=== PATIENT | male | born 1985 | race American Indian/Alaskan Native ===

== ENCOUNTER 2019-01-24 06:38 | Emergency (ER) | payer BC ==
[2019-01-24 07:37] LABS: Basophils # (Auto) 0.1 K/mm3 (0.0-0.1); Basophils % (Auto) 1.3 % (0.0-1.8); Eosinophils # (Auto) 0.2 K/mm3 (0.0-0.4); Eosinophils % (Auto) 3.1 % (0.0-4.3); Hematocrit 45.9 % (35.5-45.6); Hemoglobin 15.1 gm/dl (11.8-15.2); Lymphocytes # (Auto) 1.5 K/mm3 (1.2-5.4); Mean Corpuscular HGB Conc 33 % (32-34); Mean Corpuscular Volume 87 fl (84-94); Monocytes # (Auto) 0.7 K/mm3 (0.0-0.8); Monocytes % (Auto) 11.2 % (0.0-7.3); Platelet Count 337 K/mm3 (140-440); Red Blood Count 5.26 M/mm3 (3.65-5.03); Red Cell Distribution Width 14.7 % (13.2-15.2)
[2019-01-24 07:55] LABS: Alanine Aminotransferase 28 units/L (7-56); Albumin 4.9 g/dL (3.9-5); BUN/Creatinine Ratio 12; Blood Urea Nitrogen 12 mg/dL (9-20); Hemolysis Index 12
[2019-01-24] MEDS ORDERED: FAMOTIDINE 20 MG TAB PO ONE (10:38)
[2019-01-24] MEDS ORDERED: ACETAMINOPHEN 500 MG TAB PO ONE (10:38)
--- NOTE | 2019-01-24 10:39 | Emergency Department Report ---
ED General Adult HPI - General Chief complaint: GI Bleed Stated complaint: ABD PAIN, BLOOD IN STOOL Time Seen by Provider: 01/24/19 09:45 Source: patient, RN notes reviewed Mode of arrival: Ambulatory Limitations: No Limitations - History of Present Illness Initial comments: This is a pleasant 33-year-old gentleman. This patient is not known to this pr emanuel previously. His primary care doctor is Dr.: Rojas Past medical history includes appendectomy, hypertension The patient presents to the ER with a complaint of a few days intermittent abdominal cramping, 3 loose bowel movements in the past 24 hours, brown, dark, and question red. He also has a history of hemorrhoids. He also describes urinary pressure. He has no headache, neck pain, chest pain. He states he is having abdominal cramping at the moment. He denies dysuria and testicular pain. Symptoms intermittent, do not radiate anywhere, and do not have exacerbating or relieving factors, as far as he is aware. He is concerned that he may be having some blood in his bowel movements. -: Gradual, days(s) Location: abdomen Radiation: other Quality: other Consistency: other Improves with: other Worsens with: other - Related Data Allergies Allergy/AdvReac Type Severity Reaction Status Date / Time No Known Allergies Allergy Unverified 01/24/19 07:08 ED Review of Systems ROS: Stated complaint: ABD PAIN, BLOOD IN STOOL Other details as noted in HPI Constitutional: denies: fever Eyes: denies: eye discharge ENT: denies: congestion Respiratory: denies: wheezing Cardiovascular: denies: syncope Gastrointestinal: diarrhea. denies: vomiting, hematemesis Genitourinary: denies: dysuria, testicular pain Musculoskeletal: denies: myalgia Skin: denies: lesions Neurological: denies: weakness Hematological/Lymphatic: denies: easy bleeding ED Past Medical Hx - Past Medical History Previous Medical History?: Yes Hx Hypertension: Yes - Surgical History Past Surgical History?: No - Social History Smoking Status: Current Every Day Smoker Substance Use Type: None ED Physical Exam - General Limitations: No Limitations General appearance: alert, in no apparent distress - Head Head exam: Present: atraumatic, normocephalic - Eye Eye exam: Present: normal appearance, EOMI. Absent: nystagmus - ENT ENT exam: Present: normal exam, normal orophraynx, mucous membranes moist, normal external ear exam - Neck Neck exam: Present: normal inspection, full ROM. Absent: tenderness, meningismus - Respiratory Respiratory exam: Present: normal lung sounds bilaterally. Absent: respiratory distress - Cardiovascular Cardiovascular Exam: Present: regular rate, normal rhythm, normal heart sounds. Absent: bradycardia, tachycardia, irregular rhythm, systolic murmur, diastolic murmur, rubs, gallop - GI/Abdominal GI/Abdominal exam: Present: soft, normal bowel sounds. Absent: distended, tenderness, guarding, rebound, rigid, pulsatile mass - Rectal Rectal exam: Present: normal inspection, normal rectal tone, heme (+) stool, other (Brown stool, guaiac positive. Chaperoned by nurse Yesenia Sherwood). Absent: black stool, bloody stool, fecal impaction, hemorrhoids, mass, normal prostate, prostate tenderness, prostate enlargement - Extremities Exam Extremities exam: Present: normal inspection, full ROM, other (2+ pulses noted in the bilateral upper and lower extremities. Muscular compartments are soft. The pelvis is stable. There is no long bony tenderness.). Absent: calf tenderness - Back Exam Back exam: Present: normal inspection - Neurological Exam Neurological exam: Present: alert, oriented X3, normal gait, other (there is no facial droop. The tongue is midline. Extraocular movements are intact bilaterally. There is 5/5 strength bilateral upper and lower extremities. Sensation is intact to light touch bilateral upper and lower extremities.). Absent: motor sensory deficit - Psychiatric Psychiatric exam: Present: normal affect, normal mood - Skin Skin exam: Present: warm, dry, intact, normal color. Absent: rash ED Course Vital Signs 01/24/19 01/24/19 06:51 10:47 Temperature 99.2 F 98.2 F Pulse Rate 113 H 81 Respiratory 18 16 Rate Blood Pressure 157/94 Blood Pressure 140/87 [Left] O2 Sat by Pulse 99 99 Oximetry ED Medical Decision Making - Lab Data Result diagrams: 01/24/19 07:18 01/24/19 07:18 Vital Signs 01/24/19 01/24/19 06:51 10:47 Temperature 99.2 F 98.2 F Pulse Rate 113 H 81 Respiratory 18 16 Rate Blood Pressure 157/94 Blood Pressure 140/87 [Left] O2 Sat by Pulse 99 99 Oximetry Lab Results 01/24/19 01/24/19 Range/Units 07:18 07:18 WBC 6.3 (4.5-11.0) K/mm3 RBC 5.26 H (3.65-5.03) M/mm3 Hgb 15.1 (11.8-15.2) gm/dl Hct 45.9 H (35.5-45.6) % MCV 87 (84-94) fl MCH 29 (28-32) pg MCHC 33 (32-34) % RDW 14.7 (13.2-15.2) % Plt Count 337 (140-440) K/mm3 Lymph % (Auto) 23.0 (13.4-35.0) % Mcdowell % (Auto) 11.2 H (0.0-7.3) % Eos % (Auto) 3.1 (0.0-4.3) % Baso % (Auto) 1.3 (0.0-1.8) % Lymph # 1.5 (1.2-5.4) K/mm3 Mcdowell # 0.7 (0.0-0.8) K/mm3 Eos # 0.2 (0.0-0.4) K/mm3 Baso # 0.1 (0.0-0.1) K/mm3 Seg Neutrophils % 61.4 (40.0-70.0) % Seg Neutrophils # 3.9 (1.8-7.7) K/mm3 Sodium 140 (137-145) mmol/L Potassium 4.6 (3.6-5.0) mmol/L Chloride 100.0 (98-107) mmol/L Carbon Dioxide 23 (22-30) mmol/L Anion Gap 22 mmol/L BUN 12 (9-20) mg/dL Creatinine 1.0 (0.8-1.5) mg/dL Estimated GFR > 60 ml/min BUN/Creatinine Ratio 12 % Glucose 106 H (75-100) mg/dL Calcium 10.0 (8.4-10.2) mg/dL Total Bilirubin 0.20 (0.1-1.2) mg/dL AST 24 (5-40) units/L ALT 28 (7-56) units/L Alkaline Phosphatase 65 (35-129) units/L Total Protein 8.7 H (6.3-8.2) g/dL Albumin 4.9 (3.9-5) g/dL Albumin/Globulin Ratio 1.3 % - Medical Decision Making Differential diagnosis, including not limited to: Enteritis, inflammatory bowel disease, colitis, viral syndrome Assessment and plan: 33-year-old gentleman complaining of abdominal cramping dark stool, questionable blood on bowel movements. He is afebrile with reassuring vital signs. Abdomen soft and benign, with no rebound, guarding or peritoneal signs, and normal bowel sounds. He has brown stool that is trace guaiac positive. Laboratory studies reviewed and appreciated. Patient resting comfortably in his stretcher. He does not appear to be in any acute distress. Tachycardia has resolved. Today is day 4 of symptoms. We will treat the patient expectantly with acetaminophen, fluids, he will be counseled to avoid NSAIDs, and he will need to follow up with outpatient gastroenterology. Given lack of abdominal tenderness and benign examination, I do not think advanced imaging such as CT scan is indicated at this time. Patient indicates he is reliable to follow up with outpatient primary care and/or gastroenterology. Critical care attestation.: If time is entered above; I have spent that time in minutes in the direct care of this critically ill patient, excluding procedure time. ED Disposition Clinical Impression: History of bloody stools Disposition: DC-01 TO HOME OR SELFCARE Is pt being admited?: No Does the pt Need Aspirin: No Condition: Good Additional Instructions: Advance diet as tolerated. Drink plenty of fluids. Follow up with her primary care doctor or a coin purse framer within the next 2-4 weeks. Patient should follow-up with a coin purse framer or primary care doctor for repeat evalua tion. Symptoms likely coming from viral syndrome/viral intestinal infection. However, it would be important to follow-up, especially if symptoms do not resolve, to exclude cancer, tumor, malignancy, and inflammatory bowel condition. Avoid consumption of alcohol, Motrin, ibuprofen, Naprosyn, Aleve. Patient may take [id number] Tylenol, 650 mg by mouth, every 4 hours, Pepcid, 20 mg [id number], every 12-24 hours, please return to the emergency room right away with new, worsening or different symptoms, or symptoms not present on initial emergency room evaluation. Referrals: [facility] [Provider Group] - 3-5 Days [facility] [Provider Group] - 3-5 Days Forms: Accompanied Note
[2019-01-24 10:48] VITALS: BP 140/87
[2019-01-24 11:33] LABS: Bilirubin,Urine NEG (Negative); Blood,Urine NEG (Negative); Color,Urine Yellow (Yellow); Mucus,Urine FEW /HPF; Urobilinogen,Urine < 2.0 mg/dL (<2.0)
== END 2019-01-24 11:53 | disposition home or self-care (01) ==
LOC: ED 06:38
DX: K92.1 Melena (principal); R10.9 Unspecified abdominal pain; I10 Essential (primary) hypertension; F17.200 Nicotine dependence, unspecified, uncomplicated; Z90.49 Acquired absence of other specified parts of digestive tract
CPT/HCPCS: 36415; 80053; 81001; 82271; 85025

== ENCOUNTER 2020-09-24 17:59 | Emergency (ER) | payer BC ==
--- NOTE | 2020-09-24 21:13 | XRay Report ---
CHEST 2 VIEWS INDICATION / CLINICAL INFORMATION: Chest Pain. COMPARISON: None available. FINDINGS: SUPPORT DEVICES: None. HEART / MEDIASTINUM: No significant abnormality. LUNGS / PLEURA: No significant pulmonary or pleural abnormality. No pneumothorax. ADDITIONAL FINDINGS: No significant additional findings. IMPRESSION: 1. No acute findings. Signer Name: Nitza Cannon MD Signed: 09/24/2020 9:08 PM Workstation Name: [id number]
[2020-09-24 21:34] LABS: BUN/Creatinine Ratio 11; Blood Urea Nitrogen 13 mg/dL (9-20); Calcium 9.1 mg/dL (8.4-10.2); Hemolysis Index 13
[2020-09-24 21:45] LABS: Basophils # (Auto) 0.1 K/mm3 (0.0-0.1); Basophils % (Auto) 0.6 % (0.0-1.8); Eosinophils # (Auto) 0.1 K/mm3 (0.0-0.4); Eosinophils % (Auto) 0.8 % (0.0-4.3); Hematocrit 46.1 % (35.5-45.6); Hemoglobin 15.4 gm/dl (11.8-15.2); Lymphocytes # (Auto) 1.3 K/mm3 (1.2-5.4); Lymphocytes % (Auto) 15.5 % (13.4-35.0); Mean Corpuscular HGB Conc 33 % (32-34); Mean Corpuscular Volume 87 fl (84-94); Monocytes # (Auto) 0.7 K/mm3 (0.0-0.8); Monocytes % (Auto) 8.7 % (0.0-7.3); Platelet Count 345 K/mm3 (140-440); Red Blood Count 5.34 M/mm3 (3.65-5.03)
[2020-09-25 00:36] VITALS: BP 148/101
--- NOTE | 2020-09-25 00:50 | Emergency Department Report ---
ED General Adult HPI - General Chief complaint: Chest Pain Stated complaint: PANIC ATTACK/HIGH HEARTRATE Time Seen by Provider: 09/25/20 00:12 Source: patient Mode of arrival: Ambulatory Limitations: No Limitations - History of Present Illness Initial comments: 35-year-old male patient with history of hypertension, BMI >30, occasional tobacco use, and remote history of Kawasaki's disease during childhood presents emergency department with complaints of chest pain and shortness of breath occurring today. Patient states he began to feel short of breath while he was climbing stairs. After climbing stairs, he developed left-sided chest pain, which lasted several minutes and has since eased off. Patient experienced similar pain on the left side of his chest yesterday after moving furniture. The pain is worse with certain positions and with movement of his left arm. Describes the pain as "sharp, kind of like a bruise." Currently, patient is a symptomatic. Denies fever, chills, cough, wheezing, nausea, vomiting, syncope, palpitations, lower extremity pain/swelling. Denies all other complaints this time. - Related Data Allergies Allergy/AdvReac Type Severity Reaction Status Date / Time No Known Allergies Allergy Unverified 01/24/19 07:08 ED Review of Systems ROS: Stated complaint: PANIC ATTACK/HIGH HEARTRATE Other details as noted in HPI Other: GENERAL: Negative for fever, chills, weight change, anorexia, fatigue. ENT: Negative for ear pain, difficulty hearing, sore throat, nasal congestion, epistaxis. CARDIOVASCULAR: Positive for chest pain. PULMONARY: Positive for shortness of breath. GASTROINTESTINAL: Negative for abdominal pain, nausea, vomiting, diarrhea, constipation. MUSCULOSKELETAL: Negative for joint pain, joint swelling, myalgias, back pain, neck pain. NEUROLOGICAL: Negative for headache, seizure, syncope, paresthesias, weakness. INTEGUMENTARY: Negative for erythema, rash, diaphoresis, laceration, ecchymosis. HEMATOLOGICAL: Negative for hemoptysis, hematemesis, hematochezia, hematuria. PSYCHIATRIC: Negative for hallucinations, suicidal ideation, homicidal ideation, anxiety, depression. ED Past Medical Hx - Past Medical History Hx Hypertension: Yes - Social History Smoking Status: Current Every Day Smoker Substance Use Type: None ED Physical Exam - General Limitations: No Limitations - Other Other exam information: General: Awake and alert. No acute distress. Head: Atraumatic, normocephalic. Eyes: EOMI. Pupils are equal and round. Normal sclera and conjunctiva. ENT: Oral mucosa is moist. Normal pharyngeal exam. Neck: Supple. No lymphadenopathy. Pulmonary: No respiratory distress. Clear to auscultation bilaterally. Cardiac: Regular rate and rhythm. Pulses are palpable and equal bilaterally. No lower extremity cyanosis or edema. Left anterior lateral chest wall pain reproducible with movement of the left upper extremity. Skin: Warm and dry. No rashes. Abdomen: Soft, non-tender, non-protuberant. No guarding, rigidity, or rebound. Bowel sounds are normal. No organomegaly or masses noted. Back: Normal alignment. No CVA tenderness. Extremities: Symmetrical. Full range of motion intact. Neurological: Alert and oriented, appropriately interactive, no focal deficits. Psych: Cooperative. Appropriate mood and affect. Speech is evenly metered. Thoughts are logically construed. ED Course Vital Signs 09/24/20 20:31 Temperature 98.2 F Pulse Rate 94 H Respiratory 16 Rate Blood Pressure 148/101 O2 Sat by Pulse 99 Oximetry ED Medical Decision Making - Lab Data Result diagrams: 09/24/20 20:55 09/24/20 20:55 - EKG Data 09/25/20 00:52 EKG shows normal sinus rhythm with a ventricular rate of 95 beats per minute. Normal axis. Normal CO interval. Normal QT interval. Good R-wave progression. No ST segment changes. Over read by attending emergency physician, who agrees with this interpretation. 09/25/20 02:27 EKG shows normal sinus rhythm with a ventricular rate of 80 bpm. Normal axis. Normal CO interval. Normal QT interval. Good R wave progression. No ST segment changes. Read by attending emergency physician, who agrees with this interpretation. - Medical Decision Making Differential diagnosis including but not limited to: acute coronary syndrome, cardiac arrhythmia, pericarditis, pericardial effusion/cardiac tamponade, pneumothorax, pleural effusion, pulmonary embolism, strain/sprain Patient presents to the emergency department with signs and/or symptoms that arise low risk clinical suspicion for pulmonary embolism. The patient has none of the following clinical criteria: age >50, heart rate >100, room air O2 saturation <94%, history of DVT/PE, recent trauma/surgery, hemoptysis, exogenous hormone use, or signs/symptoms of DVT. As a result, this patient has very low probability of pulmonary embolism and further testing is not indicated. On re-evaluation, the patient is well-appearing, vital signs are stable, and edinson n is controlled. EKG without overt evidence of STEMI, Brugada syndrome, delta wave, significantly prolonged QT, or life-threatening arrhythmia. Supervising physician is in agreement with EKG interpretation. Initial troponin within normal limits. Low clinical suspicion for other life-threatening intrathoracic pathology including but not limited to: pulmonary embolism, aortic aneurysm/dissection, pneumothorax, or pneumonia. The patient is at low risk (0.9%-2.7%) of experiencing a major cardiac event within the next six weeks according to the HEART score guidelines. The patient has no known history of coronary artery disease and is therefore a candidate for risk stratification using the HEART pathway. It has been explained to the patient that the HEART score/pathway are adjunct decision-making tools and are not designed to replace clinical judgment. Shared decision making was implemented and the patient has agreed to undergo additional testing as recommended by the HEART pathway guidelines. On reevaluation, patient remains stable. Repeat EKG and troponin are both within normal limits. History and exam findings suggestive of musculoskeletal pain. No clinical indication for further diagnostic work-up on an emergent basis at this time. Patient will be discharged home in stable condition to follow-up with his primary care provider. Strict return precautions provided. Additionally, it has been explained to the patient that the primary purpose of this evaluation was to identify whether or not an acute coronary syndrome was present, and that the results of todays evaluation do not reliably exclude underlying coronary artery disease. Patient expressed understanding and was given the opportunity to ask questions, all of which were satisfactorily answered prior to discharge home. Written instructions and appropriate prescriptions/referrals provided. Critical care attestation.: If time is entered above; I have spent that time in minutes in the direct care of this critically ill patient, excluding procedure time. ED Disposition Clinical Impression: Nonspecific chest pain Disposition: DC-01 TO HOME OR SELFCARE Is pt being admited?: No Does the pt Need Aspirin: No Condition: Stable Instructions: Nonspecific Chest Pain, Adult Additional Instructions: Take Tylenol every 4 hours and Motrin every 8 hours as needed for pain. Apply heat to affected area as needed for pain. Continue medications as previously prescribed. Please quit smoking. Follow-up with primary care provider this week. Call tomorrow to schedule an appointment. See referral information below. Return to the emergency department immediately for new or worsening symptoms. Specifically, return to the emergency department immediately for fever, cough, wheezing, worsening pain, difficulty breathing, loss of consciousness, palpitations, or any other concerns. Referrals: YANN MARTINEZ MD [Staff Physician] - 3-5 Days [facility] [Provider Group] - 3-5 Days Time of Disposition: 02:29 HEART Score - HEART Score History: Slightly suspicious EKG: Normal Age: < 45 Risk factors: 1-2 risk factors Troponin: Troponin T < 0.010 ng/mL (0.00-0.029) 09/25/20 01:07 Troponin: < normal limit HEART Score: 1
--- NOTE | 2020-09-25 10:40 | Electrocardiograph Report ---
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
--- NOTE | 2020-09-25 12:47 | Electrocardiograph Report ---
[facility] Test Date: 2020-09-25 Test Time: 01:53:30 Pat Name: MITA GAMING Department: Room: Gender: M Care Program Director: ARJUN : 1985 Requested By: BARRY CARMONA Order Number: [id number] Reading MD: Christina Kimball Measurements Intervals [place] Rate: 80 P: 67 NE: 173 QRS: 65 QRSD: 94 T: 41 QT: 376 QTc: 434 Interpretive Statements Sinus rhythm Probable left atrial enlargement Compared to ECG 09/24/2020 20:34:23 No significant Electronically Signed On 09-25-2020 12:46:38 EDT by Christina Kimball
== END 2020-09-25 02:35 | disposition home or self-care (01) ==
LOC: ED 17:59
DX: R07.89 Other chest pain (principal); F17.200 Nicotine dependence, unspecified, uncomplicated; I10 Essential (primary) hypertension
CPT/HCPCS: 36415; 71046; 80048; 84484; 85025; 93005; 99284